=== PATIENT | female | born 1990 | race Caucasian/White ===

== ENCOUNTER 2017-11-14 11:10 | Outpatient (CLI) | payer BC ==
[~2017-11-14 11:10] MED LIST: ACTIGALL 300MG300 MG PO; AMOXICILLIN 50500 MG PO; APRESOLINE50 MG PO; AQUADEKS1 CTB PO; B-6100 MG PO; CARAFATE 1GM1 G PO; CEFTIN500 MG PO; CIPRO 500MG TA500 MG PO; CONSTULOSE 20G/30ML PO; CYMBALTA 60MG60 MG PO; ELITE MAGNESIUM1 TAB PO; ENULOSE10 GM/15 M PO; FEROSUL325 MG PO; FERROUS SULFATE65 MG PO; FLOMAX 0.40.4 MG/CAP PO; FLONASE NASAL S16 GM NS; FLORAJEN A20 Billion PO; GLYCOLAX17 GM/PACK PO; IRON 58.5 MG-251 TA1 PO; IRON SUPPLEMENTS; LEVAQUIN 750MG750 M1 PO; LINZESS145CAP PO; LYRICA 150MG C150 MG PO; MACROBID 1100 MG/CAP PO; MAGNESIUM PO; MASON NATURAL2000 IU PO; MELATONIN5 M1 PO; MERREM IV1 GM IV; MOBIC15 MG PO; NAPROSYN500 MG PO; NATURE'S BLEN1000 MG PO; NEBCIN40 MG/ML IJ; NEURONTIN100 MG/CAP PO; NORCO 325 MG-51 TAB PO; OMNICEF 300MG300 MG PO; PAMELOR50 MG PO; PANCREAZE 437501 ECC; PANCREAZE 437501 ECC PO; PEG PO; PERCOCET 325 MG1 TA2 PO; PREDNISONE20 MG PO; PREVACID 15MG15 M1 PO; PRILOSEC 20MG20 MG PO; PROAIR HFA0.09 MG/AC IH; PROBIOTIC FORMU1 CAP PO; PROMETHAZINE12.5 M5 PO; PULMOZYME2.5 MG/2.5 IH; PYRIDIUM 100MG100 MG PO; SENOKOT S 50 MG1 TAB PO; SINGULAIR 110 MG/TAB PO; TOBI IH; TOBI PODHALER28 MG IH; TUSS PO; ULTRAM 50MG TAB50 MG PO; VALIUM 5MG T5 MG/TAB PO; VIT B COMPLEX; VITAMIN A10k; VITAMIN B COMPL1 T16 PO; VITAMIN B-6 PO; VITAMIN B-6100 MG PO; VITAMIN C500 MG PO; VITAMIN D32000 I1 PO; VITAMIN K0.1 MG; VITAMIN K100 MCG PO; VITAMINC250CH PO; VITAMINS CHILDR1 CTB PO; VOLTAREN GEL 1%1 TU TP; ZINC1 GRA; ZITHROMAX500 M2 PO; ZOFRAN 4MG T4 MG/TAB PO; ZOFRAN ODT4 MG PO; ZOFRAN ODT8 MG PO; ZOFRAN8 MG PO; [UNRECOGNIZED DRUG - CODE] PO; [UNRECOGNIZED DRUG - OTHER]; [UNRECOGNIZED DRUG - OTHER]; [UNRECOGNIZED DRUG - OTHER]; [UNRECOGNIZED DRUG - OTHER] IH; [UNRECOGNIZED DRUG - OTHER] PO; [UNRECOGNIZED DRUG - OTHER] PO; [UNRECOGNIZED DRUG - OTHER] PO; [UNRECOGNIZED DRUG - OTHER] PO
[2017-11-14 11:31] VITALS: BP 112/72; PULSE 62; TEMP 97.7
== END 2017-11-14 11:33 | disposition home or self-care (01) ==
LOC: EUO 11:10
DX: Z79.899 Other long term (current) drug therapy (principal)
CPT/HCPCS: J1644

== ENCOUNTER → 2017-12-06 | Outpatient (CLI) | payer BC | LOC: COL.PUL 11:51 | DX: E84.0 Cystic fibrosis with pulmonary manifestations (principal); R07.89 Other chest pain ==

== ENCOUNTER → 2017-12-17 | Outpatient (CLI) | payer BC ==
[2017-12-17 17:37] LABS: BASO # 0.1 (0.0-0.2); BASO % 0.6 % (0.0-2.0); EOS # 0.2 (0.0-0.7); EOS % 2.4 % (0-4.0); GRAN # 5.4 (1.4-6.5); GRAN % 62.1 % (42.2-75.2); HEMATOCRIT 38.7 % (37.0-47.0); HEMOGLOBIN 13.3 g/dl (12.5-16.0); LYMPH # 2.3 (1.2-3.4); LYMPH % 26.6 % (20.0-51.0); MEAN CELL VOLUME 90 fl (80.0-100.0); MEAN CORPUSCULAR HEMOGLOBIN 31 pg (27.0-31.0); MEAN CORPUSCULAR HGB CONC 34 g/dl (33.0-37.0); MEAN PLATELET VOLUME 10.8 fl (7.4-10.4); MONO # 0.7 (0.1-0.6); PLATELET COUNT 387 K/mm3 (130-400); RED BLOOD COUNT 4.28 M/mm3 (4.10-5.30); REDCELL DISTRIBUTION WIDTH-CV 12.8 % (11.5-14.5)
[2017-12-17 17:49] LABS: ALANINE AMINOTRANSFERASE 32 U/L (9-52); ALBUMIN 3.9 gm/dL (3.5-5.0); ALKALINE PHOSPHATASE 102 U/L (50-136); ANION GAP 17 mmol/L (7-16); AST,SGOT 25 U/L (15-37); BILIRUBIN,TOTAL 0.3 mg/dL (0.0-1.0); BLOOD UREA NITROGEN 5 mg/dL (7-17); CALCIUM 9.3 mg/dL (8.4-10.2); CARBON DIOXIDE 21 mmol/L (22-30); CHLORIDE 103 mmol/L (98-107); CREATININE, serum 0.49 mg/dL (0.52-1.25); GLUCOSE 110 mg/dL (74-106); POTASSIUM 3.9 mmol/L (3.4-5.0); SODIUM 141 mmol/L (137-145); TOTAL PROTEIN 7.3 gm/dL (6.4-8.2)
[2017-12-17 17:56] LABS: TOBRAMYCIN TROUGH < 0.60 ug/mL (0.00-2.00)
== END ==
LOC: ZCOL.LAB 17:05
DX: Z51.81 Encounter for therapeutic drug level monitoring (principal); E84.0 Cystic fibrosis with pulmonary manifestations

== ENCOUNTER → 2017-12-25 | Outpatient (CLI) | payer BC ==
[2017-12-25 18:05] LABS: BASO # 0.1 (0.0-0.2); BASO % 1.1 % (0.0-2.0); EOS # 0.5 (0.0-0.7); EOS % 6.5 % (0-4.0); GRAN # 3.9 (1.4-6.5); GRAN % 48.3 % (42.2-75.2); HEMATOCRIT 41.2 % (37.0-47.0); HEMOGLOBIN 13.8 g/dl (12.5-16.0); LYMPH # 2.6 (1.2-3.4); LYMPH % 32.8 % (20.0-51.0); MEAN CELL VOLUME 92 fl (80.0-100.0); MEAN CORPUSCULAR HEMOGLOBIN 31 pg (27.0-31.0); MEAN CORPUSCULAR HGB CONC 34 g/dl (33.0-37.0); MEAN PLATELET VOLUME 11.7 fl (7.4-10.4); MONO # 0.9 (0.1-0.6); MONO % 11.1 % (1.7-9.3); PLATELET COUNT 340 K/mm3 (130-400); RED BLOOD COUNT 4.49 M/mm3 (4.10-5.30); REDCELL DISTRIBUTION WIDTH-CV 13.6 % (11.5-14.5)
[2017-12-25 19:12] LABS: ALBUMIN 4.2 gm/dL (3.5-5.0); BILIRUBIN,TOTAL 0.3 mg/dL (0.0-1.0); CALCIUM 9.6 mg/dL (8.4-10.2); CREATININE, serum 0.61 mg/dL (0.52-1.25); POTASSIUM 4.1 mmol/L (3.4-5.0); TOTAL PROTEIN 7.7 gm/dL (6.4-8.2)
== END ==
LOC: ZCOL.LAB 16:30
DX: E84.0 Cystic fibrosis with pulmonary manifestations (principal)

== ENCOUNTER 2018-01-23 14:52 | Outpatient (CLI) | payer BC ==
[~2018-01-23] VITALS: Ht 165.1 cm; Wt 61.0 kg
[~2018-01-23 14:52] MED LIST changes: -FERROUS SULFATE65 MG PO; +IRON TABLETS325 MG PO; +MAG-G500 MG PO; +PHARMASSURE ZIN50 MG PO; -[UNRECOGNIZED DRUG - OTHER] PO; -[UNRECOGNIZED DRUG - OTHER] PO
[2018-01-23 15:26] VITALS: BP 131/70; PULSE 89; TEMP 98.3
[2018-01-23] MEDS ORDERED: PANCREAZE 437501 ECC PO (15:39)
== END 2018-01-23 15:47 | disposition home or self-care (01) ==
LOC: EUO 14:52
DX: E84.9 Cystic fibrosis, unspecified (principal)
CPT/HCPCS: J1644

== ENCOUNTER 2018-01-27 16:57 | Emergency (ER) | payer BC ==
[~2018-01-27] VITALS: Ht 165.1 cm; Wt 61.4 kg
[2018-01-27 17:04] VITALS: TEMP 97
[2018-01-27 17:38] LABS: COLLECTION METHOD CLEAN CATCH
[2018-01-27 17:53] LABS: MUCOUS Present /lpf; PH 8 (5-8); URINE APPEARANCE Hazy; URINE BACTERIA None Seen /hpf; URINE BILIRUBIN Negative (NEGATIVE); URINE BLOOD Negative (NEGATIVE); URINE COLOR Yellow; URINE GLUCOSE Negative (NEGATIVE); URINE KETONE Negative (NEGATIVE); URINE LEUKOCYTE ESTERASE Negative (NEGATIVE); URINE NITRATE Negative (NEGATIVE); URINE PROTEIN(semi-quant) 1+ (NEGATIVE); URINE RBC 0-2 /hpf; URINE UROBILINOGEN Negative (NEGATIVE)
[2018-01-27 18:05] LABS: BASO # 0.1 (0.0-0.2); BASO % 1.4 % (0.0-2.0); EOS # 0.3 (0.0-0.7); EOS % 3.6 % (0-4.0); GRAN # 3.9 (1.4-6.5); GRAN % 50.5 % (42.2-75.2); HEMATOCRIT 42.4 % (37.0-47.0); HEMOGLOBIN 14.2 g/dl (12.5-16.0); LYMPH # 2.6 (1.2-3.4); LYMPH % 33.8 % (20.0-51.0); MEAN CELL VOLUME 92 fl (80.0-100.0); MEAN CORPUSCULAR HEMOGLOBIN 31 pg (27.0-31.0); MEAN CORPUSCULAR HGB CONC 34 g/dl (33.0-37.0); MEAN PLATELET VOLUME 12.1 fl (7.4-10.4); MONO # 0.8 (0.1-0.6); MONO % 10.4 % (1.7-9.3); PLATELET COUNT 287 K/mm3 (130-400); RED BLOOD COUNT 4.62 M/mm3 (4.10-5.30); REDCELL DISTRIBUTION WIDTH-CV 13.6 % (11.5-14.5)
[2018-01-27 18:21] LABS: ALBUMIN 4.2 gm/dL (3.5-5.0); BILIRUBIN,TOTAL 0.3 mg/dL (0.0-1.0); CALCIUM 9.2 mg/dL (8.4-10.2); CREATININE, serum 0.56 mg/dL (0.52-1.25); TOTAL PROTEIN 7.6 gm/dL (6.4-8.2)
[2018-01-27] MEDS ORDERED: NORCO 325 MG-51 TAB PO (18:47)
[2018-01-27] MEDS ORDERED: ZOFRAN ODT4 MG PO (18:47)
[2018-01-27 20:00] VITALS: BP 142/94; PULSE 86
== END 2018-01-27 20:00 | disposition home or self-care (01) ==
LOC: COL.ER 16:57
PROVIDERS: Emergency Medicine
DX: N20.1 Calculus of ureter (principal); N23 Unspecified renal colic; Z87.442 Personal history of urinary calculi
CPT/HCPCS: J1170; J1644; J1885; J2405

== ENCOUNTER 2018-02-20 14:53 | Outpatient (CLI) | payer BC ==
[~2018-02-20] VITALS: Ht 165.1 cm; Wt 62.6 kg
[2018-02-20 15:15] VITALS: BP 169/91; PULSE 62; TEMP 98
== END 2018-02-20 15:30 | disposition home or self-care (01) ==
LOC: EUO 14:53
DX: Z45.2 Encounter for adjustment and management of vascular access device (principal); Z95.828 Presence of other vascular implants and grafts
CPT/HCPCS: J1644

== ENCOUNTER 2018-04-24 14:57 | Outpatient (CLI) | payer BC ==
[2018-04-24 15:10] VITALS: BP 139/99; PULSE 94; TEMP 97.9
== END 2018-04-24 15:14 | disposition home or self-care (01) ==
LOC: EUO 14:57
DX: Z45.2 Encounter for adjustment and management of vascular access device (principal); E84.0 Cystic fibrosis with pulmonary manifestations; Z79.2 Long term (current) use of antibiotics

== ENCOUNTER → 2018-05-06 | Outpatient (CLI) | payer BC ==
[2018-05-06 19:29] LABS: BASO # 0.1 (0.0-0.2); EOS # 0.3 (0.0-0.7); EOS % 3.4 % (0-4.0); GRAN % 57.1 % (42.2-75.2); HEMATOCRIT 38.6 % (37.0-47.0); LYMPH # 2.7 (1.2-3.4); LYMPH % 30.3 % (20.0-51.0); MEAN CELL VOLUME 94 fl (80.0-100.0); MEAN CORPUSCULAR HEMOGLOBIN 32 pg (27.0-31.0); MEAN CORPUSCULAR HGB CONC 34 g/dl (33.0-37.0); MEAN PLATELET VOLUME 12.4 fl (7.4-10.4); MONO # 0.7 (0.1-0.6); PLATELET COUNT 261 K/mm3 (130-400); RED BLOOD COUNT 4.13 M/mm3 (4.10-5.30); REDCELL DISTRIBUTION WIDTH-CV 13.2 % (11.5-14.5)
[2018-05-06 19:40] LABS: ALANINE AMINOTRANSFERASE 35 U/L (9-52); ALBUMIN 3.8 gm/dL (3.5-5.0); ALKALINE PHOSPHATASE 101 U/L (50-136); ANION GAP 10 mmol/L (7-16); AST,SGOT 33 U/L (15-37); BILIRUBIN,TOTAL 0.2 mg/dL (0.0-1.0); BLOOD UREA NITROGEN 9 mg/dL (7-17); CARBON DIOXIDE 22 mmol/L (22-30); CHLORIDE 107 mmol/L (98-107); CREATININE, serum 0.53 mg/dL (0.52-1.25); GLUCOSE 81 mg/dL (74-106); POTASSIUM 4.2 mmol/L (3.4-5.0); SODIUM 139 mmol/L (137-145); TOTAL PROTEIN 6.8 gm/dL (6.4-8.2)
[2018-05-06 20:07] LABS: TOBRAMYCIN TROUGH < 0.60 ug/mL (0.00-2.00)
== END ==
LOC: COL.LAB 19:05
DX: E84.0 Cystic fibrosis with pulmonary manifestations (principal)

== ENCOUNTER → 2018-05-09 | Outpatient (CLI) | payer BC ==
[2018-05-09 20:39] LABS: BASO # 0.1 (0.0-0.2); BASO % 0.8 % (0.0-2.0); EOS # 0.3 (0.0-0.7); EOS % 2.5 % (0-4.0); GRAN # 7.3 (1.4-6.5); GRAN % 65.6 % (42.2-75.2); LYMPH # 2.6 (1.2-3.4); LYMPH % 23.5 % (20.0-51.0); MEAN CELL VOLUME 94 fl (80.0-100.0); MEAN CORPUSCULAR HEMOGLOBIN 31 pg (27.0-31.0); MEAN CORPUSCULAR HGB CONC 33 g/dl (33.0-37.0); MEAN PLATELET VOLUME 12.5 fl (7.4-10.4); MONO # 0.8 (0.1-0.6); MONO % 7.3 % (1.7-9.3); PLATELET COUNT 319 K/mm3 (130-400); RED BLOOD COUNT 4.47 M/mm3 (4.10-5.30); REDCELL DISTRIBUTION WIDTH-CV 13.1 % (11.5-14.5)
[2018-05-09 21:09] LABS: TOBRAMYCIN TROUGH 0.62 ug/mL (0.00-2.00)
[2018-05-09 21:12] LABS: ALBUMIN 4.3 gm/dL (3.5-5.0); BILIRUBIN,TOTAL 0.2 mg/dL (0.0-1.0); CALCIUM 9.5 mg/dL (8.4-10.2); CREATININE, serum 0.69 mg/dL (0.52-1.25); POTASSIUM 4.2 mmol/L (3.4-5.0); TOTAL PROTEIN 7.4 gm/dL (6.4-8.2)
== END ==
LOC: ZCOL.LAB 17:15
DX: E84.0 Cystic fibrosis with pulmonary manifestations (principal)

== ENCOUNTER 2018-05-18 21:41 | Emergency (ER) | payer BC | END 2018-05-19 00:21 | disposition home or self-care (01) | LOC: COL.ER 21:41 | DX: R10.9 Unspecified abdominal pain (principal); Z87.442 Personal history of urinary calculi ==

== ENCOUNTER 2018-05-21 16:59 | Emergency (ER) | payer BC ==
[~2018-05-21] VITALS: Ht 165.1 cm; Wt 63.6 kg
[2018-05-21 17:04] VITALS: TEMP 98.3
[2018-05-21 17:57] LABS: COLLECTION METHOD CLEAN CATCH
[2018-05-21 18:03] LABS: BASO # 0.1 (0.0-0.2); BASO % 0.6 % (0.0-2.0); EOS # 0.3 (0.0-0.7); EOS % 2.1 % (0-4.0); GRAN % 71.6 % (42.2-75.2); HEMATOCRIT 41.4 % (37.0-47.0); HEMOGLOBIN 13.7 g/dl (12.5-16.0); LYMPH # 2.3 (1.2-3.4); MEAN CELL VOLUME 93 fl (80.0-100.0); MEAN CORPUSCULAR HEMOGLOBIN 31 pg (27.0-31.0); MEAN CORPUSCULAR HGB CONC 33 g/dl (33.0-37.0); MEAN PLATELET VOLUME 11.3 fl (7.4-10.4); MONO # 0.9 (0.1-0.6); MONO % 7.5 % (1.7-9.3); PLATELET COUNT 297 K/mm3 (130-400); RED BLOOD COUNT 4.45 M/mm3 (4.10-5.30); REDCELL DISTRIBUTION WIDTH-CV 12.7 % (11.5-14.5)
[2018-05-21 18:10] LABS: PH 5 (5-8); SQUAMOUS EPITHELIAL 0-2 /hpf; URINE APPEARANCE Hazy; URINE BACTERIA None Seen /hpf; URINE BILIRUBIN Negative (NEGATIVE); URINE BLOOD Negative (NEGATIVE); URINE COLOR Yellow; URINE GLUCOSE Negative (NEGATIVE); URINE KETONE Negative (NEGATIVE); URINE LEUKOCYTE ESTERASE Negative (NEGATIVE); URINE NITRATE Negative (NEGATIVE); URINE PROTEIN(semi-quant) Negative (NEGATIVE); URINE RBC 0-2 /hpf; URINE UROBILINOGEN Negative (NEGATIVE)
[2018-05-21 18:17] LABS: BILIRUBIN,TOTAL 0.2 mg/dL (0.0-1.0); CALCIUM 8.8 mg/dL (8.4-10.2); CREATININE, serum 0.92 mg/dL (0.52-1.25); POTASSIUM 3.8 mmol/L (3.4-5.0); TOTAL PROTEIN 7.4 gm/dL (6.4-8.2)
[2018-05-21] MEDS ORDERED: DILAUDID 2MG TAB2 MG PO (18:21)
[2018-05-21 20:10] VITALS: BP 131/94; PULSE 90
== END 2018-05-21 20:17 | disposition home or self-care (01) ==
LOC: COL.ER 16:59
PROVIDERS: Emergency Medicine
DX: R10.9 Unspecified abdominal pain (principal); Z87.442 Personal history of urinary calculi; Z90.89 Acquired absence of other organs; Z90.49 Acquired absence of other specified parts of digestive tract
CPT/HCPCS: J1170; J1644; J2405; J3010; J7030

== ENCOUNTER 2018-06-19 19:09 | Emergency (ER) | payer BC ==
[~2018-06-19] VITALS: Ht 165.1 cm; Wt 63.6 kg
[2018-06-19 19:17] VITALS: BP 134/81; TEMP 97.9
[2018-06-19 20:19] LABS: COLLECTION METHOD CLEAN CATCH
[2018-06-19 20:34] LABS: PH 7 (5-8); SQUAMOUS EPITHELIAL 0-2 /hpf; URINE APPEARANCE Clear; URINE BACTERIA Rare /hpf; URINE BILIRUBIN Negative (NEGATIVE); URINE BLOOD Negative (NEGATIVE); URINE COLOR Yellow; URINE GLUCOSE Negative (NEGATIVE); URINE KETONE Negative (NEGATIVE); URINE LEUKOCYTE ESTERASE Negative (NEGATIVE); URINE NITRATE Negative (NEGATIVE); URINE PROTEIN(semi-quant) Negative (NEGATIVE); URINE RBC 0-2 /hpf; URINE UROBILINOGEN Negative (NEGATIVE)
[2018-06-19 21:54] LABS: BASO # 0.1 (0.0-0.2); BASO % 1.1 % (0.0-2.0); EOS # 0.3 (0.0-0.7); EOS % 2.7 % (0-4.0); GRAN # 5.9 (1.4-6.5); HEMATOCRIT 40.4 % (37.0-47.0); HEMOGLOBIN 13.7 g/dl (12.5-16.0); LYMPH # 2.7 (1.2-3.4); LYMPH % 27.9 % (20.0-51.0); MEAN CELL VOLUME 92 fl (80.0-100.0); MEAN CORPUSCULAR HEMOGLOBIN 31 pg (27.0-31.0); MEAN CORPUSCULAR HGB CONC 34 g/dl (33.0-37.0); MEAN PLATELET VOLUME 11.7 fl (7.4-10.4); MONO # 0.8 (0.1-0.6); PLATELET COUNT 338 K/mm3 (130-400); RED BLOOD COUNT 4.41 M/mm3 (4.10-5.30); REDCELL DISTRIBUTION WIDTH-CV 12.8 % (11.5-14.5)
[2018-06-19 22:05] LABS: ALANINE AMINOTRANSFERASE 29 U/L (9-52); ALBUMIN 4.1 gm/dL (3.5-5.0); ALKALINE PHOSPHATASE 106 U/L (50-136); ANION GAP 10 mmol/L (7-16); AST,SGOT 37 U/L (15-37); BILIRUBIN,TOTAL 0.2 mg/dL (0.0-1.0); BLOOD UREA NITROGEN 11 mg/dL (7-17); CALCIUM 9.1 mg/dL (8.4-10.2); CARBON DIOXIDE 25 mmol/L (22-30); CHLORIDE 104 mmol/L (98-107); GLUCOSE 92 mg/dL (74-106); LIPASE 38 U/L (23-300); POTASSIUM 3.9 mmol/L (3.4-5.0); SODIUM 139 mmol/L (137-145); TOTAL PROTEIN 7.7 gm/dL (6.4-8.2)
[2018-06-19 22:08] LABS: C-REACTIVE PROTEIN < 0.5 mg/dL (0.0-0.9)
[2018-06-20 01:07] VITALS: PULSE 95
== END 2018-06-20 01:05 | disposition home or self-care (01) ==
LOC: COL.ER 19:09
PROVIDERS: Family Medicine; Nurse Practitioner
DX: R10.9 Unspecified abdominal pain (principal); Z90.89 Acquired absence of other organs; Z90.49 Acquired absence of other specified parts of digestive tract; Z87.442 Personal history of urinary calculi
CPT/HCPCS: J1170; J1885; J2405; J3010; J7030

== ENCOUNTER → 2018-06-19 | Outpatient (CLI) | payer BC ==
[~2018-06-19] MED LIST changes: +DILAUDID 2MG TAB2 MG PO
== END ==
LOC: COL.PUL 06-18 11:45
DX: E84.0 Cystic fibrosis with pulmonary manifestations (principal)

== ENCOUNTER 2018-06-21 15:00 | Outpatient (RCR) | payer BC ==
[2018-06-14 15:27] LABS: HEMATOCRIT 42.2 % (37.0-47.0); HEMOGLOBIN 14.3 g/dl (12.5-16.0); MEAN CELL VOLUME 91 fl (80.0-100.0); MEAN CORPUSCULAR HEMOGLOBIN 31 pg (27.0-31.0); MEAN CORPUSCULAR HGB CONC 34 g/dl (33.0-37.0); MEAN PLATELET VOLUME 11.4 fl (7.4-10.4); PLATELET COUNT 281 K/mm3 (130-400); RED BLOOD COUNT 4.64 M/mm3 (4.10-5.30); REDCELL DISTRIBUTION WIDTH-CV 12.9 % (11.5-14.5)
[2018-06-14 15:37] LABS: ALBUMIN 4.3 gm/dL (3.5-5.0); BILIRUBIN,TOTAL 0.5 mg/dL (0.0-1.0); CALCIUM 9.6 mg/dL (8.4-10.2); CREATININE, serum 0.52 mg/dL (0.52-1.25); POTASSIUM 3.9 mmol/L (3.4-5.0); TOTAL PROTEIN 7.9 gm/dL (6.4-8.2)
[2018-06-21 15:00] VITALS: BP 110/75; PULSE 87; TEMP 97.7
[2018-06-26] MEDS ORDERED: CARAFATE 1GM1 G PO (19:49)
== END 2018-07-16 15:10 | disposition home or self-care (01) ==
LOC: EUO 15:00
PROVIDERS: Internal Medicine Pulmonary Disease
DX: Z45.2 Encounter for adjustment and management of vascular access device (principal); E84.0 Cystic fibrosis with pulmonary manifestations; Z79.2 Long term (current) use of antibiotics
CPT/HCPCS: J1644

== ENCOUNTER 2018-06-26 17:23 | Emergency (ER) | payer BC ==
[~2018-06-26] VITALS: Ht 165.1 cm; Wt 61.8 kg
[2018-06-26 17:28] VITALS: TEMP 98.6
[2018-06-26 19:09] LABS: BASO # 0.1 (0.0-0.2); BASO % 1.3 % (0.0-2.0); EOS # 0.3 (0.0-0.7); GRAN # 5.7 (1.4-6.5); GRAN % 62.1 % (42.2-75.2); HEMATOCRIT 43.3 % (37.0-47.0); HEMOGLOBIN 14.4 g/dl (12.5-16.0); LYMPH # 2.3 (1.2-3.4); LYMPH % 25.2 % (20.0-51.0); MEAN CELL VOLUME 92 fl (80.0-100.0); MEAN CORPUSCULAR HEMOGLOBIN 31 pg (27.0-31.0); MEAN CORPUSCULAR HGB CONC 33 g/dl (33.0-37.0); MEAN PLATELET VOLUME 11.5 fl (7.4-10.4); MONO # 0.7 (0.1-0.6); MONO % 8.1 % (1.7-9.3); PLATELET COUNT 353 K/mm3 (130-400)
[2018-06-26 19:16] LABS: ALBUMIN 4.3 gm/dL (3.5-5.0); BILIRUBIN,TOTAL 0.2 mg/dL (0.0-1.0); CALCIUM 9.5 mg/dL (8.4-10.2); CREATININE, serum 0.62 (0.52-1.25); TOTAL PROTEIN 8.1 gm/dL (6.4-8.2)
[2018-06-26] MEDS ORDERED: CARAFATE 1GM1 G PO (19:49)
[2018-06-26 20:40] VITALS: BP 146/96; PULSE 86
== END 2018-06-26 20:40 | disposition home or self-care (01) ==
LOC: COL.ER 17:23
PROVIDERS: Emergency Medicine
DX: R10.13 Epigastric pain (principal); Z90.89 Acquired absence of other organs; Z90.49 Acquired absence of other specified parts of digestive tract
CPT/HCPCS: J1170; J2405; J7030

== ENCOUNTER 2018-07-03 15:43 | Emergency (ER) | payer BC ==
[~2018-07-03] VITALS: Ht 165.1 cm; Wt 63.6 kg
[2018-07-03 15:46] VITALS: TEMP 98.4
[2018-07-03 16:38] LABS: COLLECTION METHOD CLEAN CATCH
[2018-07-03 16:44] LABS: BASO # 0.1 (0.0-0.2); BASO % 1.1 % (0.0-2.0); EOS # 0.2 (0.0-0.7); EOS % 2.3 % (0-4.0); GRAN # 6.1 (1.4-6.5); GRAN % 59.2 % (42.2-75.2); HEMATOCRIT 40.4 % (37.0-47.0); HEMOGLOBIN 13.6 g/dl (12.5-16.0); LYMPH # 3.1 (1.2-3.4); LYMPH % 29.9 % (20.0-51.0); MEAN CELL VOLUME 92 fl (80.0-100.0); MEAN CORPUSCULAR HEMOGLOBIN 31 pg (27.0-31.0); MEAN CORPUSCULAR HGB CONC 34 g/dl (33.0-37.0); MEAN PLATELET VOLUME 11.6 fl (7.4-10.4); MONO # 0.8 (0.1-0.6); MONO % 7.3 % (1.7-9.3); PLATELET COUNT 304 K/mm3 (130-400); RED BLOOD COUNT 4.38 M/mm3 (4.10-5.30)
[2018-07-03 16:46] LABS: PH 8 (5-8); SQUAMOUS EPITHELIAL 0-2 /hpf; URINE APPEARANCE Clear; URINE BACTERIA None Seen /hpf; URINE BILIRUBIN Negative (NEGATIVE); URINE BLOOD Negative (NEGATIVE); URINE COLOR Straw; URINE GLUCOSE Negative (NEGATIVE); URINE KETONE Negative (NEGATIVE); URINE LEUKOCYTE ESTERASE Negative (NEGATIVE); URINE NITRATE Negative (NEGATIVE); URINE PROTEIN(semi-quant) Negative (NEGATIVE); URINE RBC 0-2 /hpf; URINE UROBILINOGEN Negative (NEGATIVE)
[2018-07-03 17:04] LABS: ALBUMIN 4.1 gm/dL (3.5-5.0); BILIRUBIN,TOTAL 0.3 mg/dL (0.0-1.0); CALCIUM 9.7 mg/dL (8.4-10.2); CREATININE, serum 0.55 (0.52-1.25); POTASSIUM 3.9 mmol/L (3.4-5.0); TOTAL PROTEIN 7.6 gm/dL (6.4-8.2)
[2018-07-03 17:05] LABS: C-REACTIVE PROTEIN 0.5 mg/dL (0.0-0.9)
[2018-07-03 20:01] VITALS: BP 124/82; PULSE 90
== END 2018-07-03 20:04 | disposition home or self-care (01) ==
LOC: COL.ER 15:43
PROVIDERS: Emergency Medicine
DX: R10.13 Epigastric pain (principal); Z90.89 Acquired absence of other organs; Z90.49 Acquired absence of other specified parts of digestive tract
CPT/HCPCS: C9113; J2270; J2405; J7030

== ENCOUNTER 2018-07-19 15:03 | Outpatient (CLI) | payer BC ==
[~2018-07-19] VITALS: Ht 165.1 cm; Wt 60.0 kg
[2018-07-19 15:35] VITALS: BP 106/68; PULSE 91; TEMP 98.3
[2018-07-19 16:07] LABS: BASO # 0.1 (0.0-0.2); EOS # 0.2 (0.0-0.7); EOS % 2.3 % (0-4.0); GRAN # 5.6 (1.4-6.5); GRAN % 61.5 % (42.2-75.2); HEMATOCRIT 42.5 % (37.0-47.0); HEMOGLOBIN 14.2 g/dl (12.5-16.0); LYMPH # 2.4 (1.2-3.4); LYMPH % 26.2 % (20.0-51.0); MEAN CELL VOLUME 93 fl (80.0-100.0); MEAN CORPUSCULAR HEMOGLOBIN 31 pg (27.0-31.0); MEAN CORPUSCULAR HGB CONC 33 g/dl (33.0-37.0); MEAN PLATELET VOLUME 11.6 fl (7.4-10.4); MONO # 0.8 (0.1-0.6); MONO % 8.7 % (1.7-9.3); PLATELET COUNT 301 K/mm3 (130-400); RED BLOOD COUNT 4.57 M/mm3 (4.10-5.30); REDCELL DISTRIBUTION WIDTH-CV 14.3 % (11.5-14.5)
[2018-07-19 16:08] LABS: ALBUMIN 4.1 gm/dL (3.5-5.0); BILIRUBIN,TOTAL 0.3 mg/dL (0.0-1.0); CALCIUM 9.3 mg/dL (8.4-10.2); CREATININE, serum 0.52 (0.52-1.25); TOTAL PROTEIN 7.7 gm/dL (6.4-8.2)
== END 2018-07-19 15:56 | disposition home or self-care (01) ==
LOC: EUO 15:03
PROVIDERS: Internal Medicine
DX: F11.20 Opioid dependence, uncomplicated (principal)
CPT/HCPCS: J1644

== ENCOUNTER 2018-07-28 20:13 | Emergency (ER) | payer BC ==
[~2018-07-28] VITALS: Ht 165.1 cm; Wt 63.6 kg
[2018-07-28 20:24] VITALS: TEMP 97.6
[2018-07-28 22:47] LABS: BASO # 0.1 (0.0-0.2); BASO % 0.7 % (0.0-2.0); EOS # 0.2 (0.0-0.7); EOS % 2.2 % (0-4.0); GRAN # 6.8 (1.4-6.5); GRAN % 62.3 % (42.2-75.2); HEMATOCRIT 43.3 % (37.0-47.0); HEMOGLOBIN 14.4 g/dl (12.5-16.0); LYMPH # 2.9 (1.2-3.4); LYMPH % 26.7 % (20.0-51.0); MEAN CELL VOLUME 93 fl (80.0-100.0); MEAN CORPUSCULAR HEMOGLOBIN 31 pg (27.0-31.0); MEAN CORPUSCULAR HGB CONC 33 g/dl (33.0-37.0); MONO # 0.8 (0.1-0.6); MONO % 7.7 % (1.7-9.3); PLATELET COUNT 357 K/mm3 (130-400); RED BLOOD COUNT 4.66 M/mm3 (4.10-5.30)
[2018-07-28 22:59] LABS: ALBUMIN 4.3 gm/dL (3.5-5.0); BILIRUBIN,TOTAL 0.6 mg/dL (0.0-1.0); C-REACTIVE PROTEIN 0.9 mg/dL (0.0-0.9); CALCIUM 9.3 mg/dL (8.4-10.2); CREATININE, serum 0.62 (0.52-1.25); POTASSIUM 3.9 mmol/L (3.4-5.0); TOTAL PROTEIN 7.9 gm/dL (6.4-8.2)
[2018-07-28 23:16] LABS: COLLECTION METHOD CLEAN CATCH
[2018-07-28 23:21] LABS: MUCOUS Present /lpf; PH 6 (5-8); SQUAMOUS EPITHELIAL 0-2 /hpf; URINE APPEARANCE Clear; URINE BACTERIA None Seen /hpf; URINE BILIRUBIN Negative (NEGATIVE); URINE BLOOD Negative (NEGATIVE); URINE COLOR Yellow; URINE GLUCOSE Negative (NEGATIVE); URINE KETONE Negative (NEGATIVE); URINE LEUKOCYTE ESTERASE Negative (NEGATIVE); URINE NITRATE Negative (NEGATIVE); URINE PROTEIN(semi-quant) Negative (NEGATIVE); URINE RBC 0-2 /hpf; URINE UROBILINOGEN Negative (NEGATIVE)
[2018-07-29 01:49] VITALS: BP 120/93; PULSE 92
== END 2018-07-29 01:40 | disposition home or self-care (01) ==
LOC: COL.ER 20:13
PROVIDERS: Physician Assistant
DX: R10.13 Epigastric pain (principal)
CPT/HCPCS: J1170; J1644; J1885; J2405; J7030

== ENCOUNTER 2018-07-31 18:33 | Emergency (ER) | payer BC ==
[~2018-07-31] VITALS: Ht 165.1 cm; Wt 63.6 kg
[2018-07-31 18:51] VITALS: TEMP 99
[2018-07-31 21:04] LABS: BASO # 0.1 (0.0-0.2); BASO % 0.9 % (0.0-2.0); EOS # 0.2 (0.0-0.7); EOS % 2.1 % (0-4.0); GRAN # 5.8 (1.4-6.5); GRAN % 60.9 % (42.2-75.2); HEMATOCRIT 43.2 % (37.0-47.0); HEMOGLOBIN 14.5 g/dl (12.5-16.0); LYMPH # 2.7 (1.2-3.4); LYMPH % 27.7 % (20.0-51.0); MEAN CELL VOLUME 93 fl (80.0-100.0); MEAN CORPUSCULAR HEMOGLOBIN 31 pg (27.0-31.0); MEAN CORPUSCULAR HGB CONC 34 g/dl (33.0-37.0); MEAN PLATELET VOLUME 11.2 fl (7.4-10.4); MONO # 0.8 (0.1-0.6); MONO % 8.2 % (1.7-9.3); PLATELET COUNT 358 K/mm3 (130-400); RED BLOOD COUNT 4.67 M/mm3 (4.10-5.30); REDCELL DISTRIBUTION WIDTH-CV 14.1 % (11.5-14.5)
[2018-07-31 21:13] LABS: ALBUMIN 4.2 gm/dL (3.5-5.0); BILIRUBIN,TOTAL 0.4 mg/dL (0.0-1.0); CALCIUM 9.7 mg/dL (8.4-10.2); CREATININE, serum 0.48 (0.52-1.25); TOTAL PROTEIN 7.8 gm/dL (6.4-8.2)
[2018-07-31] MEDS ORDERED: DILAUDID 2MG TAB2 MG PO (21:53)
[2018-07-31 22:09] VITALS: BP 130/90; PULSE 99
== END 2018-07-31 22:09 | disposition home or self-care (01) ==
LOC: COL.ER 18:33
PROVIDERS: Emergency Medicine
DX: G89.29 Other chronic pain (principal); R10.13 Epigastric pain; Z87.442 Personal history of urinary calculi; Z90.89 Acquired absence of other organs; Z90.49 Acquired absence of other specified parts of digestive tract
CPT/HCPCS: J1170; J2405; J7030

== ENCOUNTER 2018-08-06 11:55 | Emergency (ER) | payer BC ==
[~2018-08-06] VITALS: Ht 165.1 cm; Wt 63.6 kg
[2018-08-06 13:28] LABS: BASO # 0.1 (0.0-0.2); BASO % 0.5 % (0.0-2.0); EOS # 0.1 (0.0-0.7); EOS % 1.1 % (0-4.0); GRAN # 7.9 (1.4-6.5); GRAN % 71.4 % (42.2-75.2); HEMATOCRIT 44.6 % (37.0-47.0); HEMOGLOBIN 15.2 g/dl (12.5-16.0); LYMPH # 1.9 (1.2-3.4); LYMPH % 16.8 % (20.0-51.0); MEAN CELL VOLUME 92 fl (80.0-100.0); MEAN CORPUSCULAR HEMOGLOBIN 32 pg (27.0-31.0); MEAN CORPUSCULAR HGB CONC 34 g/dl (33.0-37.0); MEAN PLATELET VOLUME 11.4 fl (7.4-10.4); MONO # 1.1 (0.1-0.6); MONO % 9.8 % (1.7-9.3); PLATELET COUNT 218 K/mm3 (130-400); RED BLOOD COUNT 4.83 M/mm3 (4.10-5.30); REDCELL DISTRIBUTION WIDTH-CV 13.8 % (11.5-14.5)
[2018-08-06 13:46] LABS: ALANINE AMINOTRANSFERASE 34 U/L (9-52); ALBUMIN 4.2 gm/dL (3.5-5.0); ALKALINE PHOSPHATASE 163 U/L (50-136); ANION GAP 12 mmol/L (7-16); AST,SGOT 31 U/L (15-37); BILIRUBIN,TOTAL 0.6 mg/dL (0.0-1.0); BLOOD UREA NITROGEN 8 mg/dL (7-17); C-REACTIVE PROTEIN 4.1 mg/dL (0.0-0.9); CALCIUM 9.6 mg/dL (8.4-10.2); CARBON DIOXIDE 24 mmol/L (22-30); CHLORIDE 105 mmol/L (98-107); CREATININE, serum 0.46 (0.52-1.25); GLUCOSE 91 mg/dL (74-106); POTASSIUM 4.1 mmol/L (3.4-5.0); SODIUM 141 mmol/L (137-145)
[2018-08-06 13:55] LABS: LIPASE < 10 U/L (23-300)
[2018-08-06 14:12] LABS: COLLECTION METHOD CLEAN CATCH
[2018-08-06 14:20] LABS: PH 7 (5-8); URINE APPEARANCE Clear; URINE BACTERIA Rare /hpf; URINE BILIRUBIN Negative (NEGATIVE); URINE BLOOD Negative (NEGATIVE); URINE COLOR Straw; URINE GLUCOSE Negative (NEGATIVE); URINE KETONE Negative (NEGATIVE); URINE LEUKOCYTE ESTERASE Negative (NEGATIVE); URINE NITRATE Negative (NEGATIVE); URINE PROTEIN(semi-quant) Negative (NEGATIVE); URINE RBC 0-2 /hpf; URINE UROBILINOGEN Negative (NEGATIVE)
[2018-08-06 14:22] VITALS: TEMP 98
[2018-08-06 15:06] VITALS: BP 107/74; PULSE 80
== END 2018-08-06 15:15 | disposition home or self-care (01) ==
LOC: COL.ER 11:55
PROVIDERS: Physician Assistant
DX: R11.10 Vomiting, unspecified (principal); G89.29 Other chronic pain; R10.9 Unspecified abdominal pain; Z87.442 Personal history of urinary calculi; Z87.19 Personal history of other diseases of the digestive system; Z90.49 Acquired absence of other specified parts of digestive tract; Z88.8 Allergy status to other drugs, medicaments and biological substances
CPT/HCPCS: J1170; J1885; J2405; J7030